=== PATIENT | female | born 1950 | race Caucasian/White ===

== ENCOUNTER 2018-11-29 20:45 | Inpatient (IN) | payer MEDICARE ==
[~2018-11-29] VITALS: Ht 157.5 cm; Wt 95.5 kg
--- NOTE | ~2018-11-29 | CN ---
PATIENT NAME:CECIL DAVID MEDICAL RECORD: [id number] : 52 LOCATION:D.MS [id number] ADMIT DATE: 11/29/18 ACCOUNT: [id number] CONSULTING PHYSICIAN: VIKY MENDOSA MD REFERRING PHYSICIAN: CHRISTINE ARANGO MD DATE OF CONSULTATION: 11/30/2018 DIAGNOSES: 1. Preoperative evaluation. 2. Paroxysmal atrial fibrillation. 3. Chest pain. HISTORY OF PRESENT ILLNESS: Mrs. David had a fall and has a humerus fracture. She had chest discomfort, but she has significant shoulder discomfort as well. She has no history of ischemic heart disease. Her EKG is with no ST-T abnormalities. Her chest discomfort was somewhat positional. She is not having any further chest discomfort. Troponin is normal as well. PHYSICAL EXAMINATION: GENERAL APPEARANCE: Well-nourished, well-developed, appears stated age. Level of distress, comfortable. PSYCHIATRIC: Mental status, alert, normal affect. Orientation, oriented to time, place and person. EYES: Lids and conjunctiva, noninjected. No discharge, no pallor. ENT: Lips, teeth, gums, normal dentition. Oropharynx, no cyanosis, no pallor. NECK: Carotid arteries, bilateral normal upstroke, no bruits, no thrills. JUGULAR VEINS: No jugular venous pressure or distention. CERVICAL LYMPH NODES: Nontender, nonenlarged. THYROID: Not enlarged. Nontender. No nodules. LUNGS: Respiratory effort, unlabored. CHEST: Normal curvature. No thoracic deformity. No chest wall tenderness. Percussion, resonant. Auscultation, clear. No wheezes, no rales, no rhonchi. CARDIOVASCULAR: Precordial exam, nondisplaced. No heaves or pericardial thrills. Rate and rhythm, regular. Heart sounds, normal S1, normal S2. No S3, no gallop, no rub. Systolic murmur, not heard. Diastolic murmur, not heard. EXTREMITIES: No cyanosis, no edema. Peripheral pulses, full and equal in all extremities, except as noted. No bruits appreciated. ABDOMEN: Soft, nondistended. Normal aorta. No bruit. Nontender. No masses. Liver, nontender, no hepatomegaly. Spleen, nontender, no splenomegaly. MUSCULOSKELETAL: No joint tenderness. No joint swelling. No erythema. NEUROLOGICAL: Normal gait, normal strength, normal tone. SKIN: Warm and dry. OVERALL IMPRESSION: Chest pain, most likely musculoskeletal. At this time, no other cardiac workup or treatment is necessary. She can hold the Eliquis as of now because she is in sinus rhythm. No further Eliquis is needed until postop phase. Proceed with operative repair at a low cardiac risk. TRANSINT:[id number] Voice Confirmation ID: [id number] DOCUMENT ID: [id number] CONSULT REPORT [id number] CECIL DAVID JEFFREY MD CC: [id number] DICTATION DATE: 11/30/18 1312 FLIGHT HOSTESS: 11/30/18 1350 ADM IN [facility] [address] [id number]
[2018-11-29] MEDS ORDERED: ZOLOFT100 MG PO (20:56)
[2018-11-29] MEDS ORDERED: ELIQUIS5 MG PO (20:56)
[2018-11-29] MEDS ORDERED: BUPROPION XL300 MG PO (20:56)
[2018-11-29] MEDS ORDERED: OMEPRAZOLE20 M1 PO (20:57)
[2018-11-29 23:05] LABS: BASOPHILS 0.2 % (0-2); EOSINOPHILS 1.2 % (0-7); HEMATOCRIT 38.5 % (36.0-48.0); HEMOGLOBIN 12.8 g/dL (12-16); IMMATURE GRANULOCYTES 0.4 % (0-5); LYMPHOCYTES 12.4 % (15-50); MCHC 33.2 g/dL (31.0-37.0); MCV 84.2 fL (80.0-100.0); MEAN PLATELET VOLUME 9.2 fL (7.4-10.4); MONOCYTES 6.7 % (2-11); NEUTROPHILS 79.1 % (40-80); PLATELET COUNT 146 10x3/uL (130-400); RBC 4.57 10x6/uL (4.00-5.40); RDW 13.6 % (11.5-14.5); WBC 9.8 10x3/uL (4.8-10.8)
[2018-11-29 23:17] LABS: APTT 29.6 SECONDS (22.8-39.4); INR 1.14 (0.85-1.17); PROTIME 14.1 SECONDS (11.6-15.0)
[2018-11-29 23:23] LABS: ALBUMIN 3.3 g/dL (3.4-5.0); ALKALINE PHOSPHATASE 101 U/L (46-116); ALT (SGPT) 24 U/L (10-68); BILIRUBIN - TOTAL 0.32 mg/dL (0.2-1.3); CALC OSMOLALITY 281 mosm/kg (275-300); CALCIUM 8.6 mg/dL (8.5-10.1); CARBON DIOXIDE 24.6 mmol/L (21.0-32.0); CHLORIDE - SERUM 106 mmol/L (98-107); CREATININE - SERUM 0.6 mg/dL (0.6-1.3); GLUCOSE 115 mg/dL (74-106); POTASSIUM - SERUM 3.8 mmol/L (3.5-5.1); PROTEIN - SERUM 6.9 g/dL (6.4-8.2); SODIUM 141 mmol/L (136-145); UREA NITROGEN 12 mg/dL (7-18); eGFR NON AFRICAN AMERICAN > 90 mL/min (90-120)
--- NOTE | 2018-11-30 00:02 | NUR ---
PT ARRIVED ON UNIT VIA STRETCHER. TRANSFERRED TO BED WITH DIFFICULTY PT IN A LOT OF PAIN ON MOVEMENT. STARTED IV FLUIDS AND MANAGER SEMICONDUCTOR PER ORDER. TEACHING PERFORMED ON MANAGER SEMICONDUCTOR.
--- NOTE | 2018-11-30 00:32 | NUR ---
GAVE ZOFRAN 4 MG IVP FOR NAUSEA / VOMITING. WILL MONITOR FOR EFFECTIVENESS. SIDE RAILS UP X2 FOR SAFETY. CALL LIGHT AND BREASTFEEDING EDUCATOR BUTTON WITHIN REACH.
[2018-11-30] MEDS ORDERED: FLECAINIDE ACET50 MG PO (00:58)
[2018-11-30 01:01] VITALS: BP 169/86; Ht 157.5 cm; Wt 95.5 kg
[2018-11-30 06:01] VITALS: BP 176/89
--- NOTE | 2018-11-30 06:03 | NUR ---
GAVE ZOFRAN 4 MG IVP FOR NAUSEA. WILL CONTINUE TO MONITOR FOR NEEDS.
[2018-11-30 09:08] VITALS: BP 171/81
[2018-11-30 12:09] LABS: CKMB 1.8 U/L (0.0-3.6); CREATINE KINASE 71 UL (21-215); TROPONIN-I < 0.017 ng/mL (0.000-0.060)
[2018-11-30] MEDS ORDERED: HYDROCODON-ACE1 EAC7 PO (12:42)
[2018-11-30] MEDS ORDERED: ZOFRAN ODT4 MG/UDTAB PO (12:42)
[2018-11-30 12:53] VITALS: BP 174/78
--- NOTE | 2018-11-30 13:50 | NUR ---
RECEIVED REPORT FROM NATHALIE RANGEL TO TAKE OVER HER PATIENT AT THIS TIME, PT IN STABLE CONDITION CL IN REACH
--- NOTE | 2018-11-30 14:50 | NUR ---
F/C REMOVED WITH 800CC OF RED URINE OUTPUT AT THIS TIME PT TOLERATED W/O COMPLAINT
--- NOTE | 2018-11-30 14:56 | MORECARE ---
CASE MANAGEMENT DISCHARGE SUMMARY PATIENT: CECIL DAVID UNIT: [id number] ADM DATE: 11/29/18 AGE: 68 : 51 SEX: F ROOM/BED: D.2205 AUTHOR: ADEN NUÑEZ PHYSICIAN: REFERRING PHYSICIAN: CHRISTINE ARANGO MD DATE OF SERVICE: 11/30/18 Discharge Plan Patient Name: CECIL DAVID [facility] [facility] 1950 Planned Disposition: Home Anticipated Discharge Date: 11/30/18 Discharge Date: Expected LOS: 1 Initial Reviewer: [email or web address] Initial Review Date: 11/30/2018 Generated: 11/30/18 3:55 pm Patient Name: CECIL DAVID Page [phone] at 1456 All edits/amendments must be made on the electronic document DICTATION DATE: 11/30/18 145 AIRCRAFT ORDNANCE SYSTEMS MECHANIC: EDISON 11/30/18 1455 RPT#: [id number] DC DATE: STATUS: ADM IN [facility] [address] [place] [address] END OF REPORT
--- NOTE | 2018-11-30 15:01 | NUR ---
IV DC WITH CATH INTACT DC INSTUCTIONS GIVEN PT VERABLIZES UNDERSTANDING PRESCPTIONS GIVEN TO PT IN [place], PT GETTTING UP TO VOID AT THIS TIME SLING TO LEFT ARM
--- NOTE | 2018-11-30 15:03 | MORECARE ---
CASE MANAGEMENT DISCHARGE SUMMARY PATIENT: CECIL DAVID UNIT: [id number] ADM DATE: 11/29/18 AGE: 68 : 51 SEX: F ROOM/BED: D.2205 AUTHOR: ADEN NUÑEZ PHYSICIAN: REFERRING PHYSICIAN: CHRISTINE ARANGO MD DATE OF SERVICE: 11/30/18 Discharge Plan Patient Name: CECIL DAVID Facility: [facility]:[place] : 1950 Planned Disposition: Home Anticipated Discharge Date: 11/30/18 Discharge Date: Expected LOS: 1 Initial Reviewer: [email or web address] Initial Review Date: 11/30/2018 Generated: 11/30/18 4:03 pm Comments DCP- Discharge Planning Updated by [email or web address]: Gilda Adhikari on 11/30/18 2:[address] THE PATIENT WAS VACATIONING IN [place]. SHE PLANS TO RETURN TO HOME IN [place], [place] TODAY. THE DAUGHTER HAD THE DISC WITH COPIED XRAYS. THE PATIENT ASK HER TO SIGN THE DISCHARGE PAPERWORK. PATIENT REQUEST FOR HEALTH INFORMATION FORM WAS OBTAINED FROM [facility] [employer] AND PATIENT'S , LETTY DAVID, SIGNED THE FORM. DISCHARGE IMM WAS EXPLAINED AND THE SIGNED. PATIENT HAS FACE SHEET, DISCHARGE SUMMARY, CARDIOLOGY CONSULT, ORTHOPEDIC CONSULT AND A COPY OF HER EKG IN [place]. DISCHARGE PAPERWORK TO BE REVIEWED BY PRIMARY NURSE. THE PATIENT AND FAMILY ARE VERY ANXIOUS TO DISCHARGE. THEY HAVE FLIGHTS GOING OUT TODAY. Last DP export: 11/30/18 1:56 p Patient Name: CECIL DAVID Page [id number] at 1503 All edits/amendments must be made on the electronic document DICTATION DATE: 11/30/18 1502 SENIOR INFORMATION SECURITY ANALYST: EDISON 11/30/18 1502 RPT#: [id number] DC DATE: STATUS: ADM IN [facility] [address] [place] [address] END OF REPORT
--- NOTE | 2018-11-30 15:10 | NUR ---
PT LEAVING VIA WHEELCHAIR VIA HOSPITAL STAFF VIA PRIVATE VEHCILE IN STABLE CONDITON
== END 2018-11-30 15:23 | disposition home or self-care (01) | DRG 563 ==
LOC: D.ER 20:45 → D.MS 23:03
PROVIDERS: Emergency Medicine; Orthopaedic Surgery; ADMIT Internal Medicine Nephrology; ATTEND Internal Medicine Nephrology
DX: S42.302A Unspecified fracture of shaft of humerus, left arm, initial encounter for closed fracture (principal); I10 Essential (primary) hypertension; I48.91 Unspecified atrial fibrillation; J45.909 Unspecified asthma, uncomplicated; E66.9 Obesity, unspecified; Z68.38 Body mass index [BMI] 38.0-38.9, adult